=== PATIENT | female | born 1955 | race Caucasian/White ===

== ENCOUNTER → 2016-04-06 | Outpatient (CLI) | payer BC ==
[2014-06-19 21:46] VITALS: BP 120/71
[~2016-04-06] MED LIST: ASPI325T70 PO; LISI10TA2 PO
--- NOTE | 2016-04-06 10:55 | KCIC ---
Examination: MRI of the left shoulder without contrast. HISTORY History of left shoulder pain after fall, decreased range of motion. COMPARISON None available. TECHNIQUE Multiplanar, multisequence MR imaging of the left shoulder were performed without contrast Findings: The long head of the biceps tendon is within the bicipital groove. The attachment of the long head of the biceps tendon to the superior labral anchor grossly appears intact. There is mild tendinosis of the intra-articular portion of the long head of the biceps tendon. The subscapularis tendon appears intact. There is moderate increased signal in superior fibers of the subscapularis tendon likely tendinosis. There is increased signal identified in the anterior fibers of the supraspinatus tendon with extension of fluid into the subacromial subdeltoid bursa likely full-thickness tear measuring at least 9.5 millimeters in AP dimension, best visualized on axial image series 3 image #5, however on the sagittal image the tear looks more prominent measuring 1.1 centimeters in AP dimension. Evaluation is limited due to tendinosis of the supraspinatus tendon. Few of the tendon fibers are mildly retracted. There is moderate tendinosis of the supraspinatus tendon. The infraspinatus tendon, teres minor tendon grossly appears intact. There is moderate tendinosis of the infraspinatus tendon. The muscle bulk grossly appears unremarkable. Moderate degenerative changes identified in the acromioclavicular joint. The acromion is type 2. The inferior aspect of the acromion abuts the superior aspect of the supraspinatus tendon. Correlate for impingement. Small shoulder joint effusion is noted. There is mild increased signal identified in the anterior superior labrum from 12-3 o'clock position. Mild degenerative change glenohumeral joint. There is some obliteration of fat in the rotator interval. IMPRESSION - Full-thickness tear of the supraspinatus tendon with probable mild retraction of the fibers. There is extension of fluid into subacromial subdeltoid bursa. The acromion is downsloping with increased Beckerman evidence of breath of the supraspinatus tendon. Correlate for impingement. - Moderate tendinosis of the subscapularis, supraspinatus, infraspinatus tendon. - Mild increased signal identified in the superior labrum extending anteriorly from 12-3 o'clock probably prominent appearing sublabral recess and less likely a SLAP tear, given the location. - Moderate degenerative changes identified in the acromioclavicular joint. - Obliteration of fat in the rotator interval. Correlate for adhesive capsulitis. Electronically signed by: aDve France (Apr 06, 2016 10:53:56)
== END | disposition home or self-care (01) ==
LOC: KCIC MRI 09:50
PROVIDERS: ATTEND Physician Assistant Medical
DX: M62.838 Other muscle spasm (principal); S46.912D Strain of unspecified muscle, fascia and tendon at shoulder and upper arm level, left arm, subsequent encounter
CPT/HCPCS: 73221

== ENCOUNTER 2016-06-01 08:32 | Day surgery (SDC) | payer BC ==
[~2016-06-01] VITALS: Ht 157.5 cm; Wt 78.9 kg
[~2016-06-01 08:32] MED LIST changes: +ACET500T33 PO; +AMLO5TAB2 PO; +CALC-584 PO; +CHLO25TA PO; +CLINDAMYCIN 600MG PREMIX 50 ML IV PRN; +DULO60CA6 PO; +FENTANYL PF 100 MCG/2 ML VIAL. IV PRN; +HYDROMORPHONE 2 MG/ML VIAL. IV PRN; +IV RINGERS,LACTATED 1000ML 1,000 ML IV SCH; +LIDOCAINE 1% 1 ML SYRINGE. ID PRN; +MORPHINE SULFATE 2 MG/ML DISP.SYRIN. IV PRN; +NAPR1TAB21 PO; +ONDANSETRON PF 4 MG/2 ML VIAL. IV PRN; +PROCHLORPERAZINE 10 MG/2 ML VIAL. IV PRN
[2016-06-01] MEDS ORDERED: MIDAZOLAM HCL/PF 2 MG/2 ML VIAL. ONE ×2 (09:48→10:09)
[2016-06-01] MEDS ORDERED: LIDOCAINE 2% 100 MG/5 ML SYRINGE. ONE (09:48)
[2016-06-01] MEDS ORDERED: PROPOFOL 20 ML IV ONE (09:48)
[2016-06-01] MEDS ORDERED: ROCURONIUM 50 MG/5 ML VIAL. ONE (09:48)
[2016-06-01] MEDS ORDERED: FENTANYL PF 250 MCG/5 ML VIAL. ONE (09:48)
[2016-06-01] MEDS ORDERED: SCOPOLAMINE 1.5MG PATCH. TD ONE ×2 (09:56→10:00)
[2016-06-01] MEDS ORDERED: EPINEPHRINE 30 MG/30 ML VIAL. ONE (09:58)
[2016-06-01] MEDS ORDERED: ALBUTEROL SULFATE 8GM INHALER. ONE (10:01)
[2016-06-01] MEDS ORDERED: ROPIVacaine 0.5% PF 30 ML VIAL. ONE (10:01)
[2016-06-01] MEDS ORDERED: SEVOFLURANE > 120 MINUTES. IH ONE (11:09)
[2016-06-01] MEDS ORDERED: PHENYLEPHRINE in 0.9% NACL PF 1 MG/10 ML DISP.SYRIN. IV ONE (11:09)
[2016-06-01] MEDS ORDERED: DEXAMETHASONE SOD PHOS 20 MG/5 ML VIAL. ONE (11:15)
[2016-06-01] MEDS ORDERED: ONDANSETRON PF 4 MG/2 ML VIAL. ONE (11:15)
[2016-06-01] MEDS ORDERED: GLYCOPYRROLATE 1 MG/5 ML VIAL. ONE (12:21)
[2016-06-01] MEDS ORDERED: NEOSTIGMINE METHYLSULFATE 5 MG/5 ML SYRINGE. ONE (12:22)
--- NOTE | 2016-06-01 12:45 | DISCH ---
DISCHARGE INSTRUCTIONS Condition on Discharge Condition on Discharge: Stable Activity After Discharge Activity Instructions for Disc: Other, see below Other activity instructions: may eat and move arm with elbow at side only Exercise Instruction after Dis: Exercise per therapy Diet after Discharge Diet after Discharge: Regular Wound Incision Care Wound/Incision Care: Ice to area for comfort, Keep wound elevated, Change dressing Other wound/incision instructi: remove dressing 2 days may then shower Community/Resources/Services Services at Discharge: PT EVALUATE & TREAT Contacting the [facility] after DC Call your doctor for: Concerns you may have Follow-Up Follow up with: Leydi 7-10 days SHANNON AVILA MD Jun 01, 2016 12:45
[2016-06-01] MEDS ORDERED: OXYC-244 PO (12:48)
--- NOTE | 2016-06-01 12:51 | PDOC ---
BRIEF OPERATIVE NOTE Date: Jun 01, 2016 Pre-Op Diagnosis rotator cuff tear Post-Op Diagnosis same plus impingement, ac djd Procedure Performed left shoulder arthroscopic rotator cuff repair, distal clavicle excision, decompression Surgeon Leydi Anesthesia Type: General, Regional Blood Loss 5cc Findings above Complications none SHANNON AVILA MD Jun 01, 2016 12:51
[2016-06-01 14:05] VITALS: BP 135/83
--- NOTE | 2016-06-01 19:32 | OP ---
DATE OF SURGERY: 06/01/2016 PREOPERATIVE DIAGNOSES: Left shoulder rotator cuff tear and acromioclavicular joint pain with degenerative disease. POSTOPERATIVE DIAGNOSES: Left shoulder rotator cuff tear and acromioclavicular joint pain with degenerative disease with full thickness retracted supraspinatus tear, acromioclavicular joint degenerative disease and impingement, subacromial. PROCEDURE: Left shoulder arthroscopy, arthroscopic rotator cuff repair, distal clavicle excision, subacromial decompression, debridement of superior labrum. SURGEON: Zack Holley M.D. ANESTHESIA: General plus scalene block. ESTIMATED BLOOD LOSS: 5 mL. COMPLICATIONS: None. OPERATIVE INDICATIONS: The patient is a 60-year-old female who injured her left shoulder in a fall. MRI had confirmed the clinical suspicion of a full thickness rotator cuff tear and also clinically had acromioclavicular joint pain and degenerative changes with significant signal change on the MRI. I had gone over with her the structure and function of the rotator cuff the rationale for operative treatment and repair, possible nonoperative treatment options and associated procedures including the distal clavicle excision and decompression to remove any bone spur that might pinch on the later repair and any other procedures needed as required. All her questions were answered. She is extremely limited in terms of the symptoms of the shoulder and wishes to proceed with surgical evaluation and treatment, having verbally acknowledged the possibility of nonhealing, nerve or blood vessel damage, medical or other anesthetic complications and the long recovery period among others. Again, all her questions were answered. She wants to proceed with operative evaluation and treatment. OPERATIVE TECHNIQUE: The patient was identified, procedure verified, patient placed in the supine position on operating table. After adequate amounts of general endotracheal anesthesia plus a preexisting scalene block were obtained, she was placed in the decubitus position, left side up. All bony prominences were well padded. Shoulder was examined under anesthesia, found to have full range of motion with no instability and then she was placed in the arthroscopic arm epstein with a total of 10 pounds of traction. After a timeout was performed, the patient's procedure identified and verified. A standard posterior portal was established and anterior portal established using spinal needle localization and the shoulder joint was systematically examined. She was found to have a full thickness tear of the supraspinatus as expected, visualized some of the joint site. Biceps tendon was noted to be within the groove and without significant fraying or irritation. Subscapularis was noted to have partial tear and fraying, which was debrided back to stable tissue. Superior labrum was likewise debrided back to stable tissue with a type 1 fraying. Biceps anchor was not compromised. The capsule ligamentous structures as well as glenohumeral joint were noted to be in good condition and normal bare area of the humerus was noted. At this point, the subacromial bursa was cleared to allow visualization of the full thickness tear of the supraspinatus. Rotator cuff footprint was debrided back to stable bleeding tissue without decortication. The rotator cuff was mobilized and repair was contemplated at this point. Subacromial decompression was carried out to remove the anterior acromial spur with a bur using cutting block technique. Distal clavicle was noted to be very narrowed and degenerative and the distal clavicle was excised 1 cm to allow an adequate joint space, preserving the overlying joint capsule for stability. Bony fragments were removed with the arthroscopic shaver through a separate portal. Two Healicoil Richardson and Nephew anchors were placed along the medial row and sutures were passed in a mattress fashion and secured with a sliding, locking knots backed up by alternating Prostar sutures. Lateral row repair was then carried out with 2 Multifix S anchors using sutures in a crossing fashion. Excellent watertight repair was verified under all degrees of internal and external rotation. The joint was drained off arthroscopic fluid. Portals closed with nylon suture. Sterile dressings were applied. The patient was placed in an immobilizer, extubated, and transferred to postop holding in stable condition, having tolerated the procedure well. ZACK HOLLEY MD DR: TONIO/daiana JOB#: [id number] / [id number] JACLYN Demarco MD
== END 2016-06-01 14:15 | disposition home or self-care (01) ==
LOC: SURG 08:32
PROVIDERS: ATTEND Orthopaedic Surgery
DX: S46.012A Strain of muscle(s) and tendon(s) of the rotator cuff of left shoulder, initial encounter (principal); M19.012 Primary osteoarthritis, left shoulder; I10 Essential (primary) hypertension; E66.9 Obesity, unspecified; X58.XXXA Exposure to other specified factors, initial encounter; Y93.9 Activity, unspecified; Y92.9 Unspecified place or not applicable; Y99.9 Unspecified external cause status
CPT/HCPCS: C1713; J0171; J1100; J2250; J2370; J2405; J2704; J2710; J2795; J3010; J3490; J7120; J2001

== ENCOUNTER → 2016-07-30 | Outpatient (CLI) | payer BC ==
[~2016-07-30] MED LIST changes: -CLINDAMYCIN 600MG PREMIX 50 ML IV PRN; -FENTANYL PF 100 MCG/2 ML VIAL. IV PRN; -HYDROMORPHONE 2 MG/ML VIAL. IV PRN; -IV RINGERS,LACTATED 1000ML 1,000 ML IV SCH; -LIDOCAINE 1% 1 ML SYRINGE. ID PRN; -MORPHINE SULFATE 2 MG/ML DISP.SYRIN. IV PRN; -ONDANSETRON PF 4 MG/2 ML VIAL. IV PRN; +OXYC-327 PO; -PROCHLORPERAZINE 10 MG/2 ML VIAL. IV PRN
--- NOTE | 2016-07-30 13:05 | RAD ---
MR CERVICAL SPINE HISTORY: LEFT SIDED NECK PAIN WITH LEFT ARM RADICULOPATHY, NO SX HX, PRIOR MRI COMPARISON: MRI cervical spine from 02/12/2014 Technique: Sagittal T2, sagittal STIR, sagittal T1, and axial gradient echo imaging was obtained of the cervical spine. FINDINGS: Alignment and curvature are within normal limits. Vertebral body heights are maintained. Bone marrow signal is normal. The cord is normal in caliber with no signal abnormality identified. Visualized soft tissues of the neck are within normal limits. At C2-3 there is no spinal stenosis. At C3-4 there is left-sided vertebral hypertrophy causing mild/moderate left foraminal stenosis. Correlate for left C4 radiculopathy. At C4-5 there is some thickening of the ligamentum flavum which minimally impresses upon the dorsal aspect of the cord. There is no cord signal abnormality. At C5-6 there is limited flavum thickening and a discussed by complex which minimally impresses upon the ventral and dorsal aspect of the cord. There is no foraminal stenosis. At C6-C7 there is no spinal stenosis. At C7-T1 there is no spinal stenosis. IMPRESSION: Degenerative disc disease greatest at C5-6 where there is minimal mass effect upon the cord from a discussed by complex and ligamentum flavum thickening. This is seen to a lesser degree at the level of C4-C5. There is [id number] left foraminal stenosis at C3-C4. Correlate for possible left C4 radiculopathy. Electronically signed by: Shawn Feliciano MD (07/30/2016 1:02 PM)
[2016-08-03 15:30] VITALS: BP 131/74
== END | disposition home or self-care (01) ==
LOC: MRI 08:00
PROVIDERS: ATTEND Orthopaedic Surgery
DX: M50.30 Other cervical disc degeneration, unspecified cervical region (principal); M48.02 Spinal stenosis, cervical region; Z98.890 Other specified postprocedural states
CPT/HCPCS: 72141

== ENCOUNTER → 2016-08-03 | Day surgery (SDC) | payer BC ==
[~2016-08-03] MED LIST changes: +DEXAMETHASONE SOD PHOS 20 MG/5 ML VIAL. ONE; +HYDROmorphone 2 MG/ML VIAL IV PRN; +IV RINGERS,LACTATED 1000ML 1,000 ML IV SCH; +LIDOCAINE 1% 1 ML SYRINGE. ID PRN; +LIDOCAINE 1% 20 ML VIAL. ONE; +LIDOCAINE 2% PF Vial for OR 5 ML VIAL. ONE; +MORPHINE SULFATE 2 MG/ML DISP.SYRIN. IV PRN; +ONDANSETRON PF 4 MG/2 ML VIAL. IV PRN; +ONDANSETRON PF 4 MG/2 ML VIAL. ONE; +PROCHLORPERAZINE 10 MG/2 ML VIAL. IV PRN; +PROPOFOL 20 ML IV ONE; +fentaNYL PF VIAL 100 MCG/2 ML VIAL IV PRN; +fentaNYL PF VIAL 100 MCG/2 ML VIAL ONE; +methylPREDNISolone ACETATE 80 MG/ML VIAL. ONE
[2016-08-03] MEDS: fentaNYL PF VIAL 100 MCG/2 ML VIAL IV PRN ×2 (14:05→14:18)
--- NOTE | 2016-08-03 14:17 | PDOC ---
BRIEF OPERATIVE NOTE Date: Aug 03, 2016 Pre-Op Diagnosis adhesive capsulitis left shoulder Post-Op Diagnosis same Procedure Performed manipulation under anaesthesia and injection left glenohumeral joint Surgeon Leydi Anesthesia Type: Conscious Sedation Blood Loss none Findings above Complications none SHANNON AVILA MD Aug 03, 2016 14:17
--- NOTE | 2016-08-03 14:20 | DISCH ---
DISCHARGE INSTRUCTIONS Condition on Discharge Condition on Discharge: Stable Activity After Discharge Activity Instructions for Disc: Resume previous activity Other activity instructions: no sling or other support Diet after Discharge Diet after Discharge: Regular Wound Incision Care Wound/Incision Care: Ice to area for comfort Community/Resources/Services Services at Discharge: PT EVALUATE & TREAT (immediate active and passive motion to left shoulder no restrictions on acitvity) Contacting the [facility] after DC Call your doctor for: Concerns you may have Follow-Up Follow up with: Leydi 2 weeks SHANNON AVILA MD Aug 03, 2016 14:20
[2016-08-03 15:30] VITALS: BP 131/74
--- NOTE | 2016-08-04 11:47 | OP ---
DATE OF SURGERY: 08/03/2016 PREOPERATIVE DIAGNOSIS: Adhesive capsulitis, left shoulder, status post rotator cuff repair. POSTOPERATIVE DIAGNOSIS: Adhesive capsulitis, left shoulder, status post rotator cuff repair. PROCEDURE: Manipulation under anesthesia, left shoulder and injection glenohumeral joint. SURGEON: Zack Holley M.D. ANESTHESIA: Sedation provided by Anesthesia. ESTIMATED BLOOD LOSS: None. COMPLICATIONS: None. OPERATIVE INDICATIONS: The patient had a previous rotator cuff repair and developed some postoperative adhesive capsulitis that was unresponsive to ongoing efforts with physical therapy. I talked to her about the course of adhesive capsulitis and the treatment options including letting it run its course, additional physical therapy versus manipulation under anesthesia. We did wait somewhat for additional healing in the rotator cuff, but she was unresponsive to physical therapy and therefore decided to go with manipulation under anesthesia procedure. She is aware that she will require significant physical therapy to keep the restored motion and the possibility of medical or other anesthetic complications. OPERATIVE TECHNIQUE: The patient was identified, procedure verified, the patient placed in the supine position on the operating room stretcher and after adequate amounts of deep sedation were provided by Anesthesia, left arm was examined under anesthesia and found to lack about terminal 45 degrees of external rotation and abduction, terminal 50 degrees of elevation and about 20 degrees of internal rotation. Shoulder was manipulated and was audible and palpable release of tissue. The shoulder was manipulated to its full range of motion, no instability was noted, scientologist of full range of motion in all planes. Under sterile conditions, an injection of 3 mL of 1% plain lidocaine and 1 mL of 80 mg Depo-Medrol was injected into the glenohumeral joint from an anterior approach. The patient was returned to recovery room in stable condition having tolerated the procedure well with plans of physical therapy actually starting late this afternoon. ZACK HOLLEY MD DR: TONIO/daiana JOB#: [id number] / [id number]
== END | disposition home or self-care (01) ==
LOC: SURG 10:29
PROVIDERS: ATTEND Orthopaedic Surgery
DX: M75.02 Adhesive capsulitis of left shoulder (principal); I10 Essential (primary) hypertension; E66.9 Obesity, unspecified; K21.9 Gastro-esophageal reflux disease without esophagitis; M06.9 Rheumatoid arthritis, unspecified; Z90.49 Acquired absence of other specified parts of digestive tract; Z90.710 Acquired absence of both cervix and uterus; Z87.39 Personal history of other diseases of the musculoskeletal system and connective tissue; Z88.0 Allergy status to penicillin; Z88.2 Allergy status to sulfonamides
CPT/HCPCS: 20610; 23700; J1040; J1100; J1170; J2405; J2704; J3010

== ENCOUNTER → 2017-08-08 | Outpatient (CLI) | payer BC | END | disposition home or self-care (01) | LOC: ECHO 10:42 | DX: I34.0 Nonrheumatic mitral (valve) insufficiency (principal); I31.3 Pericardial effusion (noninflammatory); I51.7 Cardiomegaly | CPT/HCPCS: 93306 ==

== ENCOUNTER → 2018-03-16 | Outpatient (CLI) | payer BC ==
[2016-08-03 15:30] VITALS: BP 131/74
[~2018-03-16] MED LIST changes: -AMLO5TAB2 PO; +AMLO5TAB7 PO; -CHLO25TA PO; +CHLO25TA10 PO; -DEXAMETHASONE SOD PHOS 20 MG/5 ML VIAL. ONE; -HYDROmorphone 2 MG/ML VIAL IV PRN; -IV RINGERS,LACTATED 1000ML 1,000 ML IV SCH; -LIDOCAINE 1% 1 ML SYRINGE. ID PRN; -LIDOCAINE 1% 20 ML VIAL. ONE; -LIDOCAINE 2% PF Vial for OR 5 ML VIAL. ONE; -MORPHINE SULFATE 2 MG/ML DISP.SYRIN. IV PRN; -ONDANSETRON PF 4 MG/2 ML VIAL. IV PRN; -ONDANSETRON PF 4 MG/2 ML VIAL. ONE; -OXYC-327 PO; +OXYC1TAB19 PO; -PROCHLORPERAZINE 10 MG/2 ML VIAL. IV PRN; -PROPOFOL 20 ML IV ONE; -fentaNYL PF VIAL 100 MCG/2 ML VIAL IV PRN; -fentaNYL PF VIAL 100 MCG/2 ML VIAL ONE; -methylPREDNISolone ACETATE 80 MG/ML VIAL. ONE
--- NOTE | 2018-03-16 16:05 | KCIC ---
EXAM: Carotid Doppler sonogram. HISTORY: Transient ischemic attack. TECHNIQUE: Pagan scale and color Doppler sonographic evaluation of the neck with spectral waveform analysis was performed and static images are submitted for review. FINDINGS: The peak systolic velocity within the right common carotid artery is 60 cm/sec. The peak systolic velocity within the right internal carotid artery is 82 cm/sec and the end diastolic velocity within the right internal carotid artery is 31 cm/sec. The right ICA/CCA ratio is 1.21. The peak systolic velocity within the left common carotid artery is 80 cm/sec. The peak systolic velocity within the left internal carotid artery is 75 cm/sec and the end diastolic velocity within the left internal carotid artery is 26 cm/sec. The left ICA/CCA ratio is 0.94. There is normal antegrade flow within both vertebral arteries. IMPRESSION: No Doppler evidence of hemodynamically significant stenosis within the carotid or vertebral arteries . PQRS Compliance Statement - Stenosis calculations for CT, MR and conventional angiography are based upon measurement of the distal ICA diameter in accordance with the NASCET methodology. Stenosis calculations for carotid ultrasound studies are derived from validated velocity criteria which are known to correlate with the NASCET methodology. Electronically signed by: Danyelle Andersen MD (03/16/2018 4:00 PM) [id number]
--- NOTE | 2018-03-16 16:07 | KCIC ---
MRI Brain without contrast History: TIA, episode of dizziness and trouble with words Technique: Multiplanar, multisequential noncontrast MR imaging was performed of the brain. Comparison: None Findings: There is no evidence of recent infarct or cytotoxic edema. The ventricles, sulci, and cisterns are within normal limits in size and configuration. There is no significant midline shift, intraaxial mass effect, or focal abnormal extra-axial fluid collection. There are several scattered very tiny foci of T2 and FLAIR hypertense signal of the supratentorial parenchyma greatest of the frontal white matter. There is no significant hemosiderin deposition of the brain parenchyma. There is preservation of the major intracranial flow-voids at the skull base. There is moderate to severe fluid of the left mastoid air cells, mild to moderate fluid of the right mastoid air cells. There is left karlos bullosa. There is deviation of the nasal septum to the right.The cerebellar tonsils are normal in location. There is no significant abnormality of the pituitary gland. There is 0.6 cm probable cyst of the pineal gland. Paranasal sinuses are overall aerated. There is preserved marrow signal of the clivus. There is likely degenerative disc disease C3-4, although poorly evaluated. Impression: 1. There is no evidence of recent infarct or intracranial mass effect. Very minimal T2 and FLAIR hyperintense signal of the supratentorial white matter is nonspecific, could be due to chronic microvascular ischemic disease. 2. There is left greater than right fluid in the mastoid air cells of uncertain sterility. Electronically signed by: Edilberto Parsons MD (03/16/2018 4:03 PM) [facility]
== END | disposition home or self-care (01) ==
LOC: KCIC MRI 13:58
PROVIDERS: ATTEND Physician Assistant Medical
DX: G45.9 Transient cerebral ischemic attack, unspecified (principal); J34.2 Deviated nasal septum; R47.81 Slurred speech
CPT/HCPCS: 70551; 93880

== ENCOUNTER → 2018-07-28 | Outpatient (CLI) | payer BC ==
[2016-08-03 15:30] VITALS: BP 131/74
[~2018-07-28] MED LIST changes: +AMLO5TAB10 PO; -AMLO5TAB7 PO
--- NOTE | 2018-07-28 09:11 | CARD ---
MR#: [id number] Date of Study: 07/28/2018 Ordering Physician: RANDOLPH POWERS, Referring Physician: RANDOLPH POWERS, Tech: Cecilia Parker ALLAN APPROVED REPORT EXAM: Two-dimensional and M-mode echocardiogram with Doppler and color Doppler. Other Information Quality : AverageHR: 70bpm Rhythm : NSR INDICATION Murmur 2D DIMENSIONS RVDd2.8 (2.9-3.5cm)Left Atrium(2D)3.8 (1.6-4.0cm) IVSd1.2 (0.7-1.1cm)Aortic Root(2D)2.8 (2.0-3.7cm) LVDd4.1 (3.9-5.9cm)LVOT Diameter2.2 (1.8-2.4cm) PWd1.0 (0.7-1.1cm)LVDs2.9 (2.5-4.0cm) FS (%) 28.4 %SV41.5 ml LVEF(%)55.3 (>50%) M-Mode DIMENSIONS Left Atrium(MM)3.68 (2.5-4.0cm)Aortic Root3.05 (2.2-3.7cm) Aortic Valve AoV Peak Michael.163.5cm/sAoV VTI33.8cm AO Peak GR.10.7mmHgLVOT Peak Michael.104.8cm/s AO Mean GR.7mmHgAVA (VMAX)2.53cm2 MARITZA (VTI)2.60cm2 Mitral Valve MV E Bbfsxvlc67.9cm/sMV E Peak Gr.3mmHg MV DECEL [id number] A Vyvsgsuv87.3cm/s MV E Mean Gr.1mmHgE/A Ratio0.9 MV A [id number] Pulmonary Valve PV Peak Pitayvzc071.5cm/s Pulmonary Vein S1 Fjoesgct16.9cm/sD2 Ziqqnmlx01.4cm/s PVa [id number] LEFT VENTRICLE The left ventricle is normal size. Proximal septal thickening is noted. No significant LVOT gradient. Murmur likely related to flow murmur. The left ventricular systolic function is normal and the eject ion fraction is within normal range. The Ejection Fraction is 55-60%. There is normal LV segmental wa ll motion. Transmitral Doppler flow pattern is Grade I-abnormal relaxation pattern. RIGHT VENTRICLE The right ventricle is normal size. There is normal right ventricular wall thickness. The right ventr icular systolic function is normal. ATRIA The left atrium size is normal. The right atrium size is normal. The interatrial septum is intact wit h no evidence for an atrial septal defect or patent foramen ovale as noted on 2-D or Doppler imaging. AORTIC VALVE The aortic valve is normal in structure and function. The aortic valve is trileaflet. Doppler and Col or Flow revealed no significant aortic regurgitation. There is no significant aortic valvular stenosi s. MITRAL VALVE There is systolic anterior motion of the mitral valve. There is no evidence of mitral valve prolapse. There is no mitral valve stenosis. Doppler and Color-flow revealed trace to mild mitral regurgitatio n. TRICUSPID VALVE The tricuspid valve is normal in structure and function. Doppler and Color Flow revealed no tricuspid valve regurgitation noted. There is no tricuspid valve prolapse or vegetation. There is no tricuspid valve stenosis. PULMONIC VALVE Doppler and Color Flow revealed trace pulmonic valvular regurgitation. There is no pulmonic valvular stenosis. GREAT VESSELS The aortic root is normal in size. The ascending aorta is normal in size. The IVC is normal in size a nd collapses >50% with inspiration. PERICARDIAL EFFUSION There is no evidence of significant pericardial effusion. Critical Notification Critical Value: No <Conclusion> The left ventricular systolic function is normal and the ejection fraction is within normal range. Th e Ejection Fraction is 55-60%. There is normal LV segmental wall motion. Proximal septal thickening is noted. No significant LVOT gradient. Murmur likely related to flow murm ur. Signed by : Jean Marie Quinn, Electronically Approved : 07/28/2018 09:11:18
--- NOTE | 2018-07-28 13:47 | RAD ---
MR#: [id number] Date of Study: 07/28/2018 Ordering Physician: RANDOLPH POWERS, Referring Physician: MIKEL STONE Tech: JILLIAN Mejia APPROVED REPORT Test Type: Exercise Stress Nurse/Tech: Irwin ROLON Test Indications: Chest Pain Cardiac History: Family Hx, HTN, See EMR Medications: ASA, See EMR Medical History: X-Smoker= Quit 5yrs ago, See EMR Resting ECG: SR Resting Heart Rate: 70 bpm Resting Blood Pressure: 154/79mmHg Pretest Chest Pain: No chest pain Nurse/Tech Notes Lungs CTA, Heart tones regular. Consent: The procedure was explained to the patient in lay terms. Informed consent was witnessed. Adelso eout was entered into [employer]. History and Stress Test performed by ARTEMIO Avery, NORAT (R) (N) Stress Symptoms No chest pain or symptoms. POST EXERCISE Reason for Termination: Reached target heart rate Target HR: Yes Max HR: 137 bpm 103% of Maximum Predicted HR: 132 bpm Exercise duration: 5:59 min:sec, 2 Stage Exercise capacity: 7.0METs Max Blood Pressure: 168/72mmHg Blood Pressure response to exercise: Normal blood pressure response during stress. Heart Rate response to exercise: WNL Chest Pain: No. Arrhythmia: No. ST Change: No. INTERPRETATION Stress EKG Conclusion: Baseline EKG showed sinus rhythm. Non diagnostic changes at peak stress. No arrhythmias. Imaging Protocol IMAGE PROTOCOL: Rest Tc-99m/stress Tc-99m 1 day Rest: Stress: Viability: Radiopharm.Tc99m MzinlypioBa70i Sestamibi Agqu07wSu 32mCi Duration 15min. 13min. Img Date 07/28/2018 07/28/2018 Inj-Img Epap24dfl. 60min. Post-Injection Exercise: 1 minute Rest Admin Site:IV - Left AntecubitalAdministrator:JILLIAN Mejia Stress Admin Site: IV - Left AntecubitalAdministrator: ARTEMIO Avery, ARRT (R)(N) STRESS DATA End Diast. Vol.72.0mlLVEDV index BSA39.0ml End Syst. Vol.13.0mlLVESV index BSA7.0ml Myocardial Mldx056.0gEject. Vvzjnhzd31.0% Stress Scores Regional WT1.00Summed WT8.00 Regional WM0.00Summed WM0.00 Study quality was good. Left Ventricular size was Normal at Rest and Stress. Lung uptake was . Left Ventricular ejection fraction is 82%. The rest and stress images show normal perfusion, normal contraction and thickening. LV Perf. Quant 17 Seg. SSS0.00 17 Seg. SRS0.00 17 Seg. SDS0.00 Stress Defect Extent (% LAD)0.00Rest Defect Extent (% LAD)0.00Rev. Defect Extent (% LAD)0.00 Stress Defect Extent (% LCX) 0.00Rest Defect Extent (% LCX)0.00Rev. Defect Extent (% LCX)0.00 Stress Defect Extent (% RCA)0.00Rest Defect Extent (% RCA)0.00Rev. Defect Extent (% RCA)0.00 Stress Defect Extent (% GISEL)0.00Rest Defect Extent (% GISEL)0.00Rev. Defect Extent (% GISEL)0.00 Conclusion 1. Treadmill exercise cardioisotope stress test did not show any evidence of ischemia or infarct. 2. Normal left ventricular systolic function with ejection fraction calculated at 82%. 3. Low risk for cardiac events. Signed by : Gil Jones, Electronically Approved : 07/28/2018 13:47:19
== END | disposition home or self-care (01) ==
LOC: ECHO 07:18
PROVIDERS: ATTEND Internal Medicine Cardiovascular Disease
DX: I34.0 Nonrheumatic mitral (valve) insufficiency (principal); R01.1 Cardiac murmur, unspecified
CPT/HCPCS: 78452; 93017; 93306; 96376; A9500

== ENCOUNTER → 2019-07-30 | Outpatient (CLI) | payer MEDICARE, BC ==
[2016-08-03 15:30] VITALS: BP 131/74
--- NOTE | 2019-07-30 13:20 | KCIC ---
DEXA scan 07/30/2019 Clinical History: Postmenopausal female. Risk factors for osteoporosis. Technique: DEXA of the lumbar spine and left hip was performed. FINDINGS: Comparison study is dated 05/19/2015. The bone mineral density of the lumbar spine is 0.823 g/cm2 which corresponds with a T-score of -2.0 . This is consistent with moderate osteopenia. The mean bone mineral density of the lumbar spine has decreased since the previous examination where it measured 0.852 g/sq cm. The mean bone mineral density of the left hip is 1.072 g/sq cm. This corresponds to a T score of 1.1. This is within normal limits. The mean bone mineral density of the left hip has increased since the previous examination where it measured 1.064 g/sq cm. By [employer] on Osteoporosis criteria, a T score of 0 to-1 SD is considered to be within normal limits. A T score of -1 to -2.5 SD is considered osteopenia. A T score less than -2.5 SD is considered osteoporosis Impression: 1. The mean bone mineral density of the left hip is within normal limits. It has increased since the previous study. 2. Moderate osteopenia of the lumbar spine. The mean bone mineral density of the lumbar spine has decreased since the previous study. Electronically signed by: Jude Grant MD (07/30/2019 1:17 PM) [id number]
--- NOTE | 2019-07-30 18:06 | KCIC ---
Bilateral digital screening mammograms with 3-D tomosynthesis: Reason for examination: Routine screening. Comparison is made to previous studies dated 05/11/2015 and 05/09/2014. Bilateral mammograms in CC and oblique projections were obtained with 2-D imaging and 3-D tomosynthesis imaging on a Siemens Inspiration unit and reviewed on the workstation. Interpretation was made with the benefit of CAD. The skin and nipples show no abnormalities. No abnormal axillary lymph nodes are seen. The breast parenchyma is heterogeneously dense. (Breast density: Category C.) There is a small circumscribed nodule at the 9:00 position approximately 3 cm from the nipple in the left breast measuring approximately 4.5 mm in size. This may represent a small cyst or fibroadenoma. This can be further evaluated with ultrasound. There are no other dominant masses, suspicious calcifications or architectural distortion. Impression: Small 4.5 mm circumscribed nodule at the 9:00 position 3 cm from the nipple in the left breast. Recommend further evaluation with ultrasound. Your patient's mammogram demonstrates that she has dense breast tissue (breast density category C or D), which could hide abnormalities, and if she has other risk factors for breast cancer that have been identified, she might benefit from supplemental screening tests that may be suggested by you as her ordering physician. Dense breast tissue, in and of itself, is a relatively common condition. Therefore, this information is not provided to cause undue concern, but rather to raise your awareness and to promote discussion with your patient regarding the presence of other risk factors, in addition to dense breast tissue. Your patient's mammography results will be sent to her. BI-RAD Category 0: Incomplete. Needs additional imaging evaluation. "Our facility is accredited by the [employer] Mammography [employer]." This patient's information has been entered into a reminder system for the patient to be notified with the results of her examination and a target date for the next mammogram. Electronically signed by: Erin Marquez MD (07/30/2019 6:04 PM) [id number]
== END | disposition home or self-care (01) ==
LOC: KCIC MAMMO 11:53
PROVIDERS: ATTEND Family Medicine
DX: Z12.31 Encounter for screening mammogram for malignant neoplasm of breast (principal); M85.88 Other specified disorders of bone density and structure, other site; N64.89 Other specified disorders of breast; Z78.0 Asymptomatic menopausal state
CPT/HCPCS: 77063; 77067; 77080

== ENCOUNTER → 2019-08-16 | Outpatient (CLI) | payer MEDICARE, BC ==
[2016-08-03 15:30] VITALS: BP 131/74
--- NOTE | 2019-08-16 10:59 | RAD ---
DATE: 08/16/2019 10:11 AM EXAM: BREAST LEFT HISTORY: Screening recall for 4.5 mm nodule in the medial anterior left breast COMPARISON: 07/30/2019 bilateral mammogram Technique: Targeted ultrasound of the anterior medial left breast was performed. FINDINGS: An oval circumscribed parallel orientation 4 mm nodule at the left breast 9:00 position 2 cm from the nipple is identified that likely correlates with the mammographic finding recalled from screening. IMPRESSION: Sonographically benign 4 mm nodule in the anterior medial left breast, compatible with a small cyst or fibroadenoma. BI-RADS CATEGORY: 2 BENIGN FINDING(S) RECOMMENDED FOLLOW-UP: 12M 12 MONTH FOLLOW-UP Annual screening mammography is recommended, unless clinically indicated sooner based on symptoms or change in physical exam. PQRS compliance statement: Patient information was entered into a reminder system with a target due date 07/31/2020 for the next mammogram. Mammography is a sensitive method for finding small breast cancers, but it does not detect them all and is not a substitute for careful clinical examination. A negative mammogram does not negate a clinically suspicious finding and should not result in delay in biopsying a clinically suspicious abnormality. "Our facility is accredited by the [employer] Mammography Program."
== END | disposition home or self-care (01) ==
LOC: MAMMO 10:51
PROVIDERS: ATTEND Family Medicine
DX: Z12.31 Encounter for screening mammogram for malignant neoplasm of breast (principal); N63.24 Unspecified lump in the left breast, lower inner quadrant
CPT/HCPCS: 76641

== ENCOUNTER → 2019-11-26 | Outpatient (CLI) | payer MEDICARE, BC ==
[2016-08-03 15:30] VITALS: BP 131/74
[~2019-11-26] MED LIST changes: +AMLO-186 PO; -AMLO5TAB10 PO
--- NOTE | 2019-11-26 10:42 | KCIC ---
BARIUM ENEMA Indication: Reason: INCOMPLETE COLONOSCOPY / Comparison: None. FINDINGS: A preliminary senior talent management consultant view of the abdomen and pelvis was obtained and revealed no abnormalities. Barium enema was then performed according to the air-contrast technique. Barium and air were instilled into the rectum in a retrograde fashion with filling of the colon from the rectum. Moderate amount of air was able to be instilled to patient discomfort and history of incompletely colonoscopy. Mild sigmoid colonic diverticulosis. Reflux of contrast into the terminal ileum was identified. There is debris throughout the colon. No evidence of colonic obstructing mass or stricture. Possible small polyps within the distal transverse colon measures 3 mm and 4 mm. Fluoroscopic time: 4 minutes 49 seconds Number of fluoroscopic images: 34 IMPRESSION: 1. Degraded evaluation due to inability to properly insufflated with air and stool contents. 2. Possible small polyps within the distal transverse colon. Recommend correlation with colonoscopy results. Recommend follow-up. Electronically signed by: Darin Luke DO (11/26/2019 10:39 AM) [id number]
== END ==
LOC: KCIC 07:47
PROVIDERS: ATTEND Internal Medicine Gastroenterology
DX: Z12.11 Encounter for screening for malignant neoplasm of colon (principal); K63.5 Polyp of colon; K57.30 Diverticulosis of large intestine without perforation or abscess without bleeding
CPT/HCPCS: 74270

== ENCOUNTER → 2020-01-07 | Outpatient (CLI) | payer MEDICARE, BC ==
[2016-08-03 15:30] VITALS: BP 131/74
--- NOTE | 2020-01-07 15:30 | KCIC ---
FOOT LEFT 3V DATE: 01/07/2020 12:00 AM INDICATION: Reason: LEFT FOOT PAIN/CALCANEUS SPUR OF LEFT HEEL / Spl. Instructions: Left heel pain, known bone spurs in the past. / History: COMPARISON: None. FINDINGS: Bones: There is no evidence of acute fracture or dislocation. Posterior and plantar calcaneal enthesophytes. Joints: The joint spaces are normal. Miscellaneous: None. IMPRESSION: No acute osseous abnormality. Calcaneal enthesophytes. Electronically signed by: Edilberto Alvarez MD (01/07/2020 3:27 PM) [id number]
== END ==
LOC: KCIC 10:18
PROVIDERS: ATTEND Family Medicine
DX: M77.32 Calcaneal spur, left foot (principal); M79.672 Pain in left foot
CPT/HCPCS: 73630

== ENCOUNTER → 2020-08-18 | Outpatient (CLI) | payer MEDICARE, BC ==
[2016-08-03 15:30] VITALS: BP 131/74
[~2020-08-18] MED LIST changes: +LISI10TA16 PO; -LISI10TA2 PO
--- NOTE | 2020-08-18 12:29 | KCIC ---
Bilateral digital screening mammograms with 3-D tomosynthesis: Reason for examination: Routine screening. Comparison is made to previous studies dated back to 05/09/2014. Bilateral mammograms in CC and oblique projections were obtained with 2-D imaging and 3-D tomosynthes is imaging on a Siemens Inspiration unit and reviewed on the workstation. Interpretation was made wit h the benefit of CAD. The skin and nipples show no abnormalities. No abnormal axillary lymph nodes are seen. The breast par enchyma shows scattered fatty and fibroglandular density. (Breast density: Category B.) There continu es to be a small circumscribed nodule in the 9:00 position of the left breast anteriorly which is unc hanged. There are no new dominant masses, suspicious calcifications or architectural distortion. Impression: No evidence of malignancy. Recommend routine screening. BI-RAD Category 2: Benign. "Our facility is accredited by the [employer] Mammography Program." This patient's information has been entered into a reminder system for the patient to be notified wit h the results of her examination and a target date for the next mammogram. Electronically signed by: Erin Mraquez MD (08/18/2020 12:27 PM) [id number]
== END ==
LOC: KCIC MAMMO 10:52
PROVIDERS: ATTEND Family Medicine
DX: Z12.31 Encounter for screening mammogram for malignant neoplasm of breast (principal); N63.22 Unspecified lump in the left breast, upper inner quadrant
CPT/HCPCS: 77063; 77067